=== PATIENT | male | born 1935 | race Caucasian/White ===

== ENCOUNTER → 2020-09-21 | Outpatient (CLI) | payer OTHER ==
[~2020-09-21] MED LIST: ASPIR 8181 MG PO; CARDURA1 MG PO; DITROPAN 5 MG TA5 MG PO; FLONASE 0.05% N16 GM; HEALTHY EYES T1 EACH PO; HYGROTON TAB 2525 MG PO; LOVASTATIN40 MG PO; MEN'S MULTI-VI1 EACH PO; SINEMET CR 50/201 EA PO; ZANTAC 150 MG150 MG PO
== END ==
LOC: EXRD 13:59
DX: M79.601 Pain in right arm (principal); R20.9 Unspecified disturbances of skin sensation
CPT/HCPCS: 93931

== ENCOUNTER → 2021-01-19 | Outpatient (CLI) | payer OTHER | LOC: KOH-I 15:32 | DX: R93.7 Abnormal findings on diagnostic imaging of other parts of musculoskeletal system (principal); M51.36 Other intervertebral disc degeneration, lumbar region; M51.37 Other intervertebral disc degeneration, lumbosacral region | CPT/HCPCS: 72148 ==

== ENCOUNTER 2021-08-08 19:20 | Observation (INO) | payer OTHER ==
[~2021-08-08] VITALS: Ht 172.7 cm; Wt 89.4 kg
[~2021-08-08 19:20] MED LIST changes: -DITROPAN 5 MG TA5 MG PO; -HEALTHY EYES T1 EACH PO; -SINEMET CR 50/201 EA PO
[2021-08-08 20:29] LABS: HEMOGLOBIN 11.7 gm/dl (14.0-17.5); RED BLOOD COUNT 3.66 M/UL (4.20-5.50); WHITE BLOOD COUNT 5.4 K/UL (4.5-11.0)
[2021-08-09] MEDS ORDERED: DITROPAN XL10 MG PO ×2 (09:55→18:18)
[2021-08-09] MEDS ORDERED: SINEMET CR 50/201 EA PO (09:58)
[2021-08-09] MEDS ORDERED: HEALTHY EYES T1 EACH PO (17:00)
[2021-08-09] MEDS ORDERED: LEXAPRO20 MG PO (18:14)
[2021-08-09] MEDS ORDERED: HYDROCODON-ACE1 EAC2 PO (18:15)
[2021-08-09] MEDS ORDERED: FAMOTIDINE40 MG PO (18:17)
[2021-08-09] MEDS ORDERED: DILTIAZEM 24HR120 M1 PO (18:17)
[2021-08-09] MEDS ORDERED: QUETIAPINE FUM100 MG PO (18:18)
[2021-08-09] MEDS ORDERED: QUETIAPINE FUMA50 MG PO (18:19)
[2021-08-09] MEDS ORDERED: HYDRALAZINE HCL50 MG PO (18:20)
[2021-08-09] MEDS ORDERED: TAMSULOSIN HCL0.4 MG PO (18:20)
[2021-08-09] MEDS ORDERED: VITAMIN D350 MC3 PO (18:21)
[2021-08-09] MEDS ORDERED: ALLEGRA ALLERG180 MG PO (18:22)
[2021-08-09] MEDS ORDERED: MIRALAX17 GM PO (18:23)
[2021-08-09] MEDS ORDERED: TIZANIDINE HCL4 MG PO (18:24)
[2021-08-11 11:00] LABS: HEMOGLOBIN 12.8 gm/dl (14.0-17.5); RED BLOOD COUNT 3.96 M/UL (4.20-5.50); WHITE BLOOD COUNT 6.4 K/UL (4.5-11.0)
[2021-08-11 11:38] LABS: BUN/CREATININE RATIO 19 (0-10)
[2021-08-12 09:04] LABS: BUN/CREATININE RATIO 19 (0-10)
--- NOTE | 2021-08-12 11:12 | NUR ---
up in chair watching tv
--- NOTE | 2021-08-14 02:58 | NUR ---
BEDSIDE TABLE MOVED INTO BATHROOM, BLINDS DOWN, NO CURTAIN IN THE ROOM- PER ASSEMBLER CHASSIS DUE TO WILLIAM SANTIAGO
[2021-08-15 15:36] LABS: HEMOGLOBIN 11.9 gm/dl (14.0-17.5); RED BLOOD COUNT 3.64 M/UL (4.20-5.50); WHITE BLOOD COUNT 6.9 K/UL (4.5-11.0)
--- NOTE | 2021-08-15 16:34 | NUR ---
1630: PLACED CONDOM CATH ON PATIENT IF EFFORT TO COLLECT URINE SPECIMEN FOR MICRO AND C & S. WILL MONITOR FOR EFFECTIVENESS.
[2021-08-17 08:28] LABS: BUN/CREATININE RATIO 25 (0-10)
[2021-08-18 04:56] LABS: HEMOGLOBIN 12.1 gm/dl (14.0-17.5); RED BLOOD COUNT 3.86 M/UL (4.20-5.50); WHITE BLOOD COUNT 5.7 K/UL (4.5-11.0)
[2021-08-18 05:09] LABS: BUN/CREATININE RATIO 21 (0-10)
[2021-08-22] MEDS ORDERED: DIVALPROEX SOD125 MG PO (16:16)
[2021-08-22] MEDS ORDERED: TIZANIDINE HCL4 MG PO (16:16)
[2021-08-22] MEDS ORDERED: HYDRALAZINE HCL50 MG PO (16:16)
[2021-08-22] MEDS ORDERED: HYDROCODON-ACE1 EAC2 PO (16:16)
--- NOTE | 2021-08-24 22:22 | NUR ---
[facility] CALLED AND THE COMMAND AND CONTROL OFFICER INFORMED THE ADMIT AND DISCHARGE NURSE THAT THE PATIENT WILL NOT BE ACCEPTED TONIGHT AND THAT THE PATIENT WAS NOT TO BE TRANSFERED UNTILL AFTER 6AM IN THE MORNING ON 08/25. [employer] WAS NOTIFIED AND AMBULANCE SERVICE WAS NOTIFIED OF THE CHANGE. DISCUSSED WITH PATIENT DAUGHTER. PATIENT RESTING IN BED WITH NO COMPLAINTS AT THIS TIME. CALL LIGHT IN REACH BED IN LOW POSITION AND SIDERAIL ELEVATED.
[2021-08-25 08:56] LABS: BUN/CREATININE RATIO 23 (0-10)
== END 2021-08-25 13:45 ==
LOC: ER1 19:20 → M/S 08-11 09:26 → CDU 08-11 09:26 → M/S 08-11 20:04
PROVIDERS: Emergency Medicine; Physician Assistant; ADMIT Internal Medicine Infectious Disease
DX: G20 Parkinson's disease (principal); F02.80 Dementia in other diseases classified elsewhere, unspecified severity, without behavioral disturbance, psychotic disturbance, mood disturbance, and anxiety; R29.6 Repeated falls; I12.9 Hypertensive chronic kidney disease with stage 1 through stage 4 chronic kidney disease, or unspecified chronic kidney disease; N18.30 Chronic kidney disease, stage 3 unspecified; K21.9 Gastro-esophageal reflux disease without esophagitis; E78.5 Hyperlipidemia, unspecified; N40.0 Benign prostatic hyperplasia without lower urinary tract symptoms; N17.9 Acute kidney failure, unspecified; G93.40 Encephalopathy, unspecified; R91.8 Other nonspecific abnormal finding of lung field; E16.2 Hypoglycemia, unspecified; Z74.1 Need for assistance with personal care; Z79.82 Long term (current) use of aspirin; Z20.822 Contact with and (suspected) exposure to COVID-19; J98.11 Atelectasis
CPT/HCPCS: 36415; 70450; 71045; 72125; 72128; 72131; 73080; 80048; 80053; 81001; 82550; 82553; 82607; 82962; 83735; 83874; 84100; 84439; 84443; 84484; 85025; 85610; 85730; 87086; 90471; 90715; 93005; 96372; 96374; 96375; 96376; 97110; 97110-GP-CQ; 97116; 97116-GP-CQ; 97162; 97166; 97530; 97530-GP-CQ; 99285; A6212; G0378; J0360; J0696; J2060; J3486; J7030; U0002